=== PATIENT | male | born 1965 | race Caucasian/White ===

== ENCOUNTER → 2021-08-15 | Outpatient (CLI) | payer BC ==
--- NOTE | 2021-08-15 08:42 | XR ---
EXAMINATION TYPE: XR chest 2V DATE OF EXAM: 08/15/2021 COMPARISON: NONE HISTORY: Cough for 2 weeks. TECHNIQUE: Frontal and lateral views of the chest are obtained. FINDINGS: There is no focal air space opacity, pleural effusion, or pneumothorax seen. The cardiac silhouette size is within normal limits. Slight underlying scoliotic curvature or positioning. IMPRESSION: No acute pulmonary process.
== END | disposition home or self-care (01) ==
LOC: RADXRMAIN 08:16
PROVIDERS: ATTEND Internal Medicine
DX: R05.9 Cough, unspecified (principal)
CPT/HCPCS: 71046

== ENCOUNTER → 2024-03-16 | Outpatient (CLI) | payer BC ==
--- NOTE | 2024-03-16 12:18 | CA ---
Exercise Stress Test Report Name: Mathew Gilmore Exam Date: 03/16/2024 09:34 Exam Location: [place] Stress Ht (in): 76 Wt (lb): 193 BSA: 2.18 Ordering Phys: Mary Celeste MD Referring Phys: Mary Celeste MD Technologist: SEGUN/EDDIE,, Age: 58 Gender: M : 1965 Procedure CPT: Indications: I25.10 ATHSCL HEART DISEASE OF [place] CORONARY ART ICD-10 Codes: Patient History: Abnormal CT, palpitations and hyperlipidemia. Medications: Meds past 24 hrs: Pretest Chest Pain: STRESS TEST Protocol Exercise Duration (min:sec): 10:[address] Depressions (mm): Angina Score: Mann Score: Resting HR (bpm): 81 Peak HR (bpm): 156 Resting BP (mmHg): 151 / 99 Peak BP (mmHg): 204 / 81 MPHR: 163 Target HR: 139 % MPHR: 96 METS: 11.9 Total Dose: Peak Dose: Atropine: Double Product: 70845 BP Response: Stress Termination: Reached target heart rate Stress Symptoms: No chest pain or symptoms Stress Summary: ECG ANALYSIS Resting ECG: Stress ECG: CONCLUSIONS Excellent exercise tolerance Normal electrocardiogram stress testing Dr. Jorge Renteria MD (Electronically Signed) Final Date: 16 March 2024 12:17
--- NOTE | 2024-03-16 21:24 | NM ---
EXAMINATION TYPE: NM stress cardiolite complete DATE OF EXAM: 03/16/2024 COMPARISON: NONE HISTORY: Ischemic heart disease TECHNIQUE: After the intravenous administration of 9.0 mCi Tc 99m Sestamibi - Cardiolite resting SPE CT images acquired 45 minutes post injection. At peak stress 26.1 mCi Tc 99m Sestamibi - Stress images obtained 20 minutes post injection The patient was stressed with 0.4mg Lexiscan. FINDINGS: No fixed defects are evident. There is diminished radiotracer along the inferior wall appears to be a rtifactual and not supported on the polar maps. Rotating images suggest this may be artifact related to liver. No reversible stress defects on Spect images. Wall motion is normal Ejection fraction is calculated to be 59 %. IMPRESSION: 1. No stress-induced ischemic change.
== END | disposition home or self-care (01) ==
LOC: RADNMMAIN 08:14
PROVIDERS: ATTEND Internal Medicine
DX: I25.10 Atherosclerotic heart disease of native coronary artery without angina pectoris (principal)
CPT/HCPCS: 93017; 78452; A9500

== ENCOUNTER → 2024-09-03 | Outpatient (CLI) | payer BC ==
--- NOTE | 2024-09-03 12:11 | XR ---
EXAMINATION TYPE: XR cervical spine w flex/ext DATE OF EXAM: 09/03/2024 COMPARISON: NONE CLINICAL INDICATION: Male, 59 years old with history of M47.812 cervical spondylosis; neck and should er pain for several months TECHNIQUE: 7 views FINDINGS: Moderate multilevel facet and uncovertebral joint arthropathy especially mid to lower cervi chris spine. On the left, changes resulting mild to moderate bony neuroforaminal narrowing at C5-C6 and C6-C7. On the right, changes result in mild bony neuroforaminal narrowing at C5-C6 and C6-C7. Mild to moderate disc/endplate degenerative change C5-C6 and C6-C7. Alignment is maintained. No dynam ic subluxation on flexion-extension. There is some degenerative change at the C1 dens articulation but no abnormal widening. No prevertebr al soft tissue swelling. Normal odontoid view. IMPRESSION: 1. Moderate spondylotic change especially C5-C7 levels resulting in variable mild to moderate bony ne uroforaminal narrowing, left greater than right. 2. No malalignment or dynamic subluxation. [facility], , 09/03/2024 12:08 PM
== END | disposition home or self-care (01) ==
LOC: RADXRMAIN 07:47
PROVIDERS: ATTEND Internal Medicine
DX: M47.812 Spondylosis without myelopathy or radiculopathy, cervical region (principal)
CPT/HCPCS: 72052

== ENCOUNTER → 2024-09-15 | Outpatient (CLI) | payer BC ==
--- NOTE | 2024-09-15 10:10 | US ---
EXAMINATION TYPE: US carotid duplex BILAT DATE OF EXAM: 09/15/2024 COMPARISON: NONE CLINICAL INDICATION: Male, 59 years old with history of I25.10 ATHEROSCLEROSIS; I65.23 Carotid stenoi s; stenosis Additional History: .... TECHNIQUE: Grayscale, color Doppler and spectral Doppler evaluation of the bilateral carotid systems and vertebral arteries. Indirect Doppler criteria was utilized. FINDINGS: EXAM MEASUREMENTS: RIGHT: Peak Systolic Velocity (PSV) cm/sec ----- Right CCA: 107 ----- Right ICA: 93.8 ----- Right ECA: 153 ICA/CCA ratio: .9 RIGHT: End Diastole cm/sec ----- Right CCA: 22 ----- Right ICA: 34.4 ----- Right ECA: 17.2 LEFT: Peak Systolic Velocity (PSV) cm/sec ----- Left CCA: 112 ----- Left ICA: 101 ----- Left ECA: 169 ICA/CCA ratio: .9 LEFT: End Diastole cm/sec ----- Left CCA: 24.5 ----- Left ICA: 27.2 ----- Left ECA: 22.3 VERTEBRALS (direction of flow): Right Vertebral: Antegrade Left Vertebral: Antegrade Rhythm: Normal CHILD CARE COOK NOTES: No significant stenosis seen Color Doppler imaging shows patency with blood flow throughout the carotid artery. Spectral waveforms are within normal limits. IMPRESSION: Right: No hemodynamically significant stenosis. Left: No hemodynamically significant stenosis. Criteria for Assigning % of Stenosis / Diameter reduction (Estimation based on the indirect measurements of the internal carotid artery velocities (ICA PSV). 1. Normal (no stenosis)=ICA PSV < 125 cm/s: ratio < 2.0: ICA EDV<40 cm/s. 2. Less than 50% stenosis=ICA PSV < 125 cm/s: ratio < 2.0: ICA EDV<40 cm/s. 3. 50 to 69% stenosis=ICA PSV of 125 to 230 cm/s: ration 2.0 ? 4.0: ICA EDV 40-100 cm/s. 4. Greater than 70% stenosis to near occlusion= ICA PSV > 230 cm/s: ratio > 4.0: ICA EDV > 100 cm/s. 5. Near occlusion= ICA PSV velocities may be low or undetectable: variable ratio and ICA EDV. 6. Total occlusion=unable to detect flow. [facility], , 09/15/2024 10:08 AM
== END | disposition home or self-care (01) ==
LOC: RADUSWWP 07:31
PROVIDERS: ATTEND Internal Medicine
DX: I25.10 Atherosclerotic heart disease of native coronary artery without angina pectoris (principal); I65.23 Occlusion and stenosis of bilateral carotid arteries; M47.812 Spondylosis without myelopathy or radiculopathy, cervical region
CPT/HCPCS: 93880

== ENCOUNTER 2024-09-24 19:17 | Emergency (ER) | payer BC ==
[2024-09-24 19:25] VITALS: RESP 18; TEMP 98.3
--- NOTE | 2024-09-24 19:56 | ED ---
General Adult HPI - General Chief complaint: Extremity Injury, Lower Stated complaint: L foot injury Time Seen by Provider: 09/24/24 19:38 Source: patient, RN notes reviewed Mode of arrival: ambulatory Limitations: no limitations - History of Present Illness Initial comments: 59-year-old male presents to the emergency department for left foot injury. P justin states that 2 days ago he was helping a friend and standing on a chair when he tripped and fell off of the chair and landed with all of his weight on his left foot. He states that since then he has been ambulating on it but he and has been painful. He states that he went to an urgent care out of town and was told that his foot was working and was told to come to the ER. He was not splinted at that time. He denies any other injury, denies blood thinners. Denies any numbness, tingling. - Related Data Allergies Allergy/AdvReac Type Severity Reaction Status Date / Time Penicillins Allergy Rash/Hives Verified 09/24/24 19:26 Review of Systems ROS Statement: Those systems with pertinent positive or pertinent negative responses have been documented in the HPI. ROS Other: All systems not noted in ROS Statement are negative. Past Medical History Past Medical History: No Reported History History of Any Multi-Drug Resistant Organisms: None Reported Past Surgical History: No Surgical Hx Reported Past Psychological History: No Psychological Hx Reported Smoking Status: Never smoker Past Alcohol Use History: Occasional Past Drug Use History: None Reported General Exam Limitations: no limitations General appearance: alert, in no apparent distress Head exam: Present: atraumatic, normocephalic, normal inspection Eye exam: Present: normal appearance, PERRL, EOMI. Absent: scleral icterus, conjunctival injection, periorbital swelling Respiratory exam: Present: normal lung sounds bilaterally. Absent: respiratory distress, wheezes, rales, rhonchi, stridor Cardiovascular Exam: Present: regular rate, normal rhythm, normal heart sounds. Absent: systolic murmur, diastolic murmur, rubs, gallop, clicks Extremities exam: Present: full ROM, tenderness (Lateral left mid foot ), normal capillary refill, other (Distally neurovascularly intact, ecchymosis to the plantar aspect of the toes and the lateral foot). Absent: pedal edema, joint swelling, calf tenderness Neurological exam: Present: alert, oriented X3 Psychiatric exam: Present: normal affect, normal mood Skin exam: Present: warm, dry, intact. Absent: normal color Course Vital Signs 09/24/24 09/24/24 19:24 21:42 Temperature 98.3 F Pulse Rate 68 75 Respiratory 18 18 Rate Blood Pressure 156/85 150/76 O2 Sat by Pulse 95 96 Oximetry Procedures - Orthopedic Splinting/Casting Injury #1 Side: left Lower Extremity Injury Location: short leg Lower Extremity Immobilizer: posterior splint, stirrup splint Other Orthopedic Equipment: crutches Medical Decision Making - Medical Decision Making Was pt. sent in by a medical professional or institution (, PA, ETHYL BLENDER, urgent care, hospital, or fdc...) When possible be specific @ -No Did you speak to anyone other than the patient for history (EMS, parent, family, police, friend...)? What history was obtained from this source @ -No Did you review nursing and triage notes (agree or disagree)? Why? @ -I reviewed and agree with nursing and triage notes Were old charts reviewed (outside hosp., previous admission, EMS record, old EKG, old radiological studies, urgent care reports/EKG's, fdc records)? Report findings @ -No old charts were reviewed Differential Diagnosis (chest pain, altered mental status, abdominal pain women, abdominal pain men, vaginal bleeding, weakness, fever, dyspnea, syncope, he adache, dizziness, GI bleed, back pain, seizure, CVA, palpatations, mental health, musculoskeletal)? @ -Differential Musculoskeletal Muscular strain, contusion, ligament sprain, fracture, arthritis, septic arthritis, bursitis, cellulitis, muscle spasm, nerve compression, DVT, arterial occlusion, herpes zoster, electrolyte abnormality, tumor.... This is not meant to be in all inclusive list] EKG interpreted by me (3pts min.). @ -None X-rays interpreted by me (1pt min.). @ -X-ray of the left foot obtained shows a Oblique fracture of the fifth metatarsal shaft CT interpreted by me (1pt min.). @ -None done U/S interpreted by me (1pt. min.). @ -None done What testing was considered but not performed or refused? (CT, X-rays, U/S, labs)? Why? @ -None What meds were considered but not given or refused? Why? @ -None Did you discuss the management of the patient with other professionals (professionals i.e. DrKarolina, PA, ETHYL BLENDER, lab, RT, psych nurse, forensic social worker, fly finisher, te acher, ski patrol officer, returned case inspector)? Give summary @ -No Was smoking cessation discussed for >3mins.? @ -No Was critical care preformed (if so, how long)? @ -No Were there social determinants of health that impacted care today? How? (Homelessness, low income, unemployed, alcoholism, drug addiction, transportation, low edu. Level, literacy, decrease access to med. care, usp, rehab)? @ -No Was there de-escalation of care discussed even if they declined (Discuss DNR or withdrawal of care, Hospice)? DNR status @ -No What co-morbidities impacted this encounter? (DM, HTN, Smoking, COPD, CAD, C ancer, CVA, ARF, Chemo, Hep., AIDS, mental health diagnosis, sleep apnea, morbid obesity)? @ -None Was patient admitted / discharged? Hospital course, mention meds given and route, prescriptions, significant lab abnormalities, going to OR and other pertinent info. @ -Discharge. Patient presented to emergency department for evaluation of left foot fracture. X-rays obtained showing an oblique fracture of the fifth metatarsal shaft. Patient distally neurovascularly intact. He was placed in a posterior and stirrup splint. He was provided information for orthopedic follow-up along with crutches and advised him to remain nonweightbearing. Also advised to rest, ice, elevate. Patient understanding and agreeable. Patient stable at time of discharge. Case discussed with Dr. Zarate Undiagnosed new problem with uncertain prognosis? @ -No Drug Therapy requiring intensive monitoring for toxicity (Heparin, Nitro, Insulin, Cardizem)? @ -No Were any procedures done? @ -No Diagnosis/symptom? @ -Fifth metatarsal fracture Acute, or Chronic, or Acute on Chronic? @ -Acute Uncomplicated (without systemic symptoms) or Complicated (systemic symptoms)? @ -Uncomplicated Side effects of treatment? @ -No Exacerbation, Progression, or Severe Exacerbation? @ -No Poses a threat to life or bodily function? How? (Chest pain, [place], [place], pneumonia, PE, COPD, DKA, ARF, appy, cholecystitis, CVA, Diverticulitis, Homicidal, Suicidal, threat to staff... and all critical care pts) @ -No Disposition Clinical Impression: Fracture of fifth metatarsal bone of left foot Disposition: HOME SELF-CARE Condition: Stable Instructions (If sedation given, give patient instructions): Foot Fracture in Adults (ED) Additional Instructions: Please follow up with orthopedics. Return to the emergency department for new or worsening symptoms. Is patient prescribed a controlled substance at d/c from ED?: No Referrals: Mary Celeste MD [Primary Care Provider] - 1-2 days Abdifatah Albright MD [STAFF PHYSICIAN] - 1-2 days
--- NOTE | 2024-09-24 21:06 | XR ---
EXAMINATION TYPE: XR ankle complete LT DATE OF EXAM: 09/24/2024 8:57 PM CLINICAL INDICATION:Male, 59 years old with history of fall; H COMPARISON: None TECHNIQUE: The left ankle is imaged in frontal, lateral and oblique projections. FINDINGS: There is no evidence of acute osseous pathology. The joint spaces are well-preserved without evidenc e of subluxation or dislocation. No radiopaque foreign bodies are identified. Soft tissue edema surro unding the foot. IMPRESSION: No evidence of fracture involving the ankle. [facility], , 09/24/2024 9:03 PM
--- NOTE | 2024-09-24 21:08 | XR ---
EXAMINATION TYPE: XR foot complete LT DATE OF EXAM: 09/24/2024 8:57 PM CLINICAL INDICATION:Male, 59 years old with history of fall; [facility] COMPARISON: None TECHNIQUE: The left foot was examined in the frontal, oblique, and lateral FINDINGS: Obliquely oriented fracture involving the fifth metatarsal diaphysis. Additional suspected small osse ous fragment superolateral to the lateral cuneiform. Soft tissue edema surrounding the midfoot. Join ts are preserved. IMPRESSION: 1. Obliquely oriented fracture involving the fifth metatarsal. 2. Suspected avulsion fracture of the lateral cuneiform. [facility], , 09/24/2024 9:05 PM
[2024-09-24 21:42] VITALS: BP 150/76; PULSE 75
== END 2024-09-24 22:10 | disposition home or self-care (01) ==
LOC: EC 19:17
DX: S92.352A Displaced fracture of fifth metatarsal bone, left foot, initial encounter for closed fracture (principal); Z88.0 Allergy status to penicillin; W01.0XXA Fall on same level from slipping, tripping and stumbling without subsequent striking against object, initial encounter
CPT/HCPCS: 29515; 99283